=== PATIENT | female | born 1945 | race Caucasian/White ===

== ENCOUNTER 2023-04-09 17:38 | Emergency (ER) | payer OTHER, MEDICARE ==
[~2023-04-09] VITALS: Ht 157.5 cm; Wt 55.8 kg
[2023-04-09 19:14] VITALS: BP 157/74; PULSE 68; RESP 18; TEMP 98; O2SAT 99
[2023-04-09] MEDS ORDERED: ACETAMINOPHEN 325 MG TAB PO ONE (20:35)
== END 2023-04-09 22:07 | disposition home or self-care (01) ==
LOC: MED 17:38
DX: S39.012A Strain of muscle, fascia and tendon of lower back, initial encounter (principal); V49.88XA Car occupant (driver) (passenger) injured in other specified transport accidents, initial encounter; Y93.89 Activity, other specified; Y92.89 Other specified places as the place of occurrence of the external cause; Y99.8 Other external cause status
CPT/HCPCS: 72040; 72100; 99284